=== PATIENT | female | born 1995 | race Caucasian/White ===

== ENCOUNTER 2016-08-29 15:14 | Inpatient (IN) | payer OTHER ==
[~2016-08-29] VITALS: Ht 160 cm; Wt 53.0 kg
[2016-08-29] MEDS ORDERED: SODIUM CHLORIDE 0.9% 1000ML 1,000 ML IV STA (17:33)
--- NOTE | 2016-08-29 17:49 | EMERGENCY ROOM VISIT NOTE ---
History Report prepared by Duy: Carolyn Altamirano Under the Supervision of: Dr. Jefferson Wu D.O. First contact with patient: 17:33 Chief Complaint: ABDOMINAL PAIN Stated Complaint: ABDOMINAL CRAMPING, DIARRHEA FOR 10 DAYS Nursing Triage Summary: Pt c/o generalized abd pain x10 days +diarrhea History of Present Illness The patient is a 21 year old female who presents to the Emergency Room with complaints of severe and persistent diffuse abdominal pain starting about 10 days ago. The patient describes it to be a cramping pain. She was evaluated by her PCP about a week ago who was concerned about salmonella. The patient gave a stool sample at her PCP's office about a week ago. She has been taking Cipro as prescribed by her PCP without relief. She was referred to the Emergency Room by her PCP. She has been taking Tylenol for her abdominal pain without relief. Her last Tylenol dose was about 5 hours ago. She had a fever of 101 degrees Fahrenheit this morning. She has been having about 10 episodes of diarrhea every day for the past 2 weeks. She also reports some blood in stool. She denies any [id number] travels. The patient also denies nausea, vomiting, or any other complaints. She has a family history of Crohn's disease. She does not have any medical problems. Source of History: patient Onset: about 10 days ago Position: abdomen (diffuse) Symptom Intensity: severe Quality: cramping Timing: other (persistent) Modifying Factors (Relieving): tylenol (without relief), other (Cipro without relief) Associated Symptoms: + diarrhea, + fevers, No nausea, No vomiting Review of Systems See HPI for pertinent positives & negatives. A total of 10 systems reviewed and were otherwise negative. Past Medical & Surgical Medical Problems: (1) Diarrhea (2) No Known Active Medical Problems Family History FH: Crohn's disease Social History Smoking Status: Never Smoker Marital Status: single Occupation Status: [employer] student Current/Historical Medications Scheduled Control Pills ( Control Pills), 1 TAB PO QPM Scheduled PRN Acetaminophen (Tylenol), 500 MG PO Q6 PRN for Pain Ibuprofen (Advil), 200 MG PO Q6 PRN for Pain Allergies Coded Allergies: No Known Allergies (Unverified , 08/29/16) Physical Exam Vital Signs Date Time Temp Pulse Resp B/P Pulse Ox O2 Delivery O2 Flow Rate FiO2 08/29/16 22:17 106 21 119/73 100 Room Air 08/29/16 21:51 92 08/29/16 20:16 105 17 117/81 99 Room Air 08/29/16 18:28 78 18 120/94 98 Room Air 08/29/16 17:53 103 08/29/16 15:27 37.4 127 18 126/86 96 Room Air Physical Exam GENERAL: Patient is awake, alert, non-anxious appearing, and comfortable. EYES: The conjunctivae are clear. The pupils are round and reactive. EARS, NOSE, MOUTH AND THROAT: The nose is without any evidence of any deformity. Mucous membranes are moist tongue is midline NECK: The neck is nontender and supple. RESPIRATORY: Normal respiratory effort is noted there is no evidence of wheezing rhonchi or rales CARDIOVASCULAR: Tachycardic rate and regular rhythm noted there are no definite murmurs noted. GASTROINTESTINAL: The abdomen is soft. Bowel sounds are present in all quadrants. Abdomen is moderately distended and diffusely tender. There is no specific guarding or rigidity. MUSCULOSKELETAL/EXTREMITIES: There is no evidence of gross deformity full range of motion is noted in the hips and shoulders SKIN: There is no obvious evidence of any rash. There are no petechiae, pallor or cyanosis noted. NEUROLOGIC: Patient is awake alert and oriented x3 strength is symmetric patellar reflexes are 2+ bilaterally Medical Decision & Procedures ER Provider Diagnostic Interpretation: CT results as stated below per my review and radiologist interpretation. ABDOMEN AND PELVIS CT WITH IV AND ORAL CONTRAST CT DOSE: 250.85 mGy.cm HISTORY: Pain diffuse pain, blood in stool TECHNIQUE: Multiaxial CT images of the abdomen and pelvis were performed following the use of intravenous and oral contrast. COMPARISON STUDY: None. FINDINGS: Lung bases are clear. Liver spleen and pancreas are unremarkable. Kidneys negative for hydronephrosis. There are findings of moderate generalized wall edema of the bulk of the colon. This consistent with that of a generalized nonspecific colitis. There is no evidence for pneumatosis. There is trace amount of free fluid within the pelvic cul-de-sac. There is no evidence for abscess collection or obstructive change. Small bowel pattern is considered nonobstructive. There are several reactive mesenteric and retroperitoneal nodes. IMPRESSION: 1. Findings consistent with a generalized nonspecific colitis. 2. Wall thickening of all segments of the colon is present. 3. No evidence for abscess collection or obstructive change. Electronically signed by: Romeo Looney M.D. 08/29/2016 8:24 PM Dictated Date/Time: 08/29/2016 8:20 PM Laboratory Results 08/29/16 17:42 Red Blood Count 4.67, Mean Corpuscular Volume 83.3, Mean Corpuscular Hemoglobin 29.6, Mean Corpuscular Hemoglobin Concent 35.5, Mean Platelet Volume 9.0, Neutrophils (%) (Auto) 74.8, Lymphocytes (%) (Auto) 15.3, Monocytes (%) (Auto) 7.3, Eosinophils (%) (Auto) 1.8, Basophils (%) (Auto) 0.2, Neutrophils # (Auto) 10.08, Lymphocytes # (Auto) 2.06, Monocytes # (Auto) 0.99, Eosinophils # (Auto) 0.24, Basophils # (Auto) 0.03 08/29/16 17:42 Test 08/29/16 17:42 08/29/16 18:37 08/29/16 19:32 White Blood Count 13.48 K/uL (4.8-10.8) Red Blood Count 4.67 M/uL (4.2-5.4) Hemoglobin 13.8 g/dL (12.0-16.0) Hematocrit 38.9 % (37-47) Mean Corpuscular Volume 83.3 fL (80-100) Mean Corpuscular Hemoglobin 29.6 pg (25-34) Mean Corpuscular Hemoglobin Concent 35.5 g/dl (32-36) Platelet Count 385 K/uL (130-400) Mean Platelet Volume 9.0 fL (7.4-10.4) Neutrophils (%) (Auto) 74.8 % Lymphocytes (%) (Auto) 15.3 % Monocytes (%) (Auto) 7.3 % Eosinophils (%) (Auto) 1.8 % Basophils (%) (Auto) 0.2 % Neutrophils # (Auto) 10.08 K/uL (1.4-6.5) Lymphocytes # (Auto) 2.06 K/uL (1.2-3.4) Monocytes # (Auto) 0.99 K/uL (0.11-0.59) Eosinophils # (Auto) 0.24 K/uL (0-0.5) Basophils # (Auto) 0.03 K/uL (0-0.2) RDW Standard Deviation 37.1 fL (36.4-46.3) RDW Coefficient of Variation 12.2 % (11.5-14.5) Immature Granulocyte % (Auto) 0.6 % Immature Granulocyte # (Auto) 0.08 K/uL (0.00-0.02) Erythrocyte Sedimentation Rate 39 mm/hr (0-21) Anion Gap 8.0 mmol/L (3-11) Est Creatinine Clear Calc Drug Dose 76.6 ml/min Estimated GFR () 116.9 Estimated GFR (Non- 100.9 BUN/Creatinine Ratio 5.1 (10-20) Calcium Level 9.3 mg/dl (8.5-10.1) Magnesium Level 2.0 mg/dl (1.8-2.4) Total Bilirubin 0.4 mg/dl (0.2-1) Direct Bilirubin 0.1 mg/dl (0-0.2) Aspartate Amino Transf (AST/SGOT) 12 U/L (15-37) Alanine Aminotransferase (ALT/SGPT) 15 U/L (12-78) Alkaline Phosphatase 92 U/L (45-117) C-Reactive Protein 13.20 mg/dl (0-0.29) Total Protein 8.3 gm/dl (6.4-8.2) Albumin 3.2 gm/dl (3.4-5.0) Lipase 113 U/L (73-393) Human Chorionic Gonadotropin, Qual NEG (NEG) Urine Color YELLOW Urine Appearance CLEAR (CLEAR) Urine pH 5.5 (4.5-7.5) Urine Specific [place] 1.011 (1.000-1.030) Urine Protein 1+ (NEG) Urine Glucose (UA) NEG (NEG) Urine Ketones 1+ (NEG) Urine Occult Blood 1+ (NEG) Urine Nitrite NEG (NEG) Urine Bilirubin NEG (NEG) Urine Urobilinogen NEG (NEG) Urine Leukocyte Esterase NEG (NEG) Urine WBC (Auto) 1-5 /hpf (0-5) Urine RBC (Auto) 0-4 /hpf (0-4) Urine Hyaline Casts (Auto) 1-5 /lpf (0-5) Urine Epithelial Cells (Auto) >30 /lpf (0-5) Urine Bacteria (Auto) 1+ (NEG) Date/Time Source Procedure Growth Status 08/29/16 21:57 Stool C.difficile Toxin B Gene (PCR) - Final No C. difficile toxin B gene detected Complete Laboratory results per my review. Medications Administered Medications (Trade) Dose Ordered Sig/Wero Route Start Time Stop Time Status Last Admin Dose Admin Sodium Chloride (Nss 1000ml) 1,000 ml @ 999 mls/hr Q1H1M STAT IV 08/29/16 17:33 08/29/16 18:33 DC 08/29/16 17:51 999 MLS/HR ED Course 1732: The patient was evaluated in room A02. A complete history and physical examination were performed. Sodium Chloride 1000 ml @ 999 mls/hr IV 2032: Upon reevaluation, the patient is doing well. I discussed results and treatment plan with her. She verbalizes agreement and understanding. 2038: I discussed the patient's case with Dr. Jolly, general surgeon with [facility]. She recommended inpatient treatment. 2151: I spoke with Dr. Bhatia of the [facility]. The patient will be evaluated for further management and care. Medical Decision Prior records/ancillary studies reviewed. Triage Nursing notes reviewed. The patient's history was concerning for abdominal pain. Differential diagnosis: Etiologies such as appendicitis, diverticulitis, PUD, biliary pathology, UTI, pancreatitis, obstruction, mesenteric ischemia, aortic pathology, infections, inflammatory bowel disease, renal colic, as well as others were entertained. The patient is a 21-year-old female who presented to emergency department because of ongoing diarrhea. The patient has had loose bowel movements and has noted blood in her bowel movements over the last week. She was initially seen by her primary physician who sent stool studies which are pending and also started the patient on Cipro a few days ago. The patient thought the Cipro was making her pain worse and stop taking it. The patient does have a first-degree relative who has inflammatory bowel disease. She was treated with IV fluids in the emergency department. She was reevaluated multiple times. I discussed her case with the on-call stained glass glazier helper. I also discussed his case with the on- call [facility]. They have agreed to evaluate the patient in the emergency department for further management and disposition. Consults Time Called: 2034 Consulting Physician: Dr. Jolly, general surgeon with [facility] Returned Call: 2038 I discussed the patient's case with Dr. Jolly, general surgeon with [facility]. She recommended inpatient treatment. Additional Consults: Time Called: 2044 [facility]ed [facility] Returned Call: [phone] Additional Comments: [facility] The patient will be evaluated for further management and care. Impression Primary Impression: Lower GI bleed Additional Impressions: Colitis Abdominal pain Elevated white blood cell count Scribe Attestation The scribe's documentation has been prepared under my direction and personally reviewed by me in its entirety. I confirm that the note above accurately reflects all work, treatment, procedures, and medical decision making performed by me. Departure Information Dispostion Being Evaluated By Hospitalist Referrals No Doctor, Assigned (PCP) Patient Instructions My [facility] Problem Qualifiers Additional Impressions: Abdominal pain Abdominal location: generalized Qualified Codes: R10.84 - Generalized abdominal pain Elevated white blood cell count Leukocytosis type: unspecified Qualified Codes: D72.829 - Elevated white blood cell count, unspecified
[2016-08-29 17:51] LABS: BASO % 0.2 %; BASO ABS # 0.03 K/uL (0-0.2); COMPLETE YES; EOS % 1.8 %; HEMATOCRIT 38.9 % (37-47); IG% 0.6 %; LYMPH % 15.3 %; LYMPH ABS # 2.06 K/uL (1.2-3.4); MEAN CELL VOLUME 83.3 fL (80-100); MEAN CORPUSCULAR HEMOGLOBIN 29.6 pg (25-34); MEAN CORPUSCULAR HGB CONC 35.5 g/dl (32-36); MONO % 7.3 %; NEUT % 74.8 %; PLATELET COUNT 385 K/uL (130-400); RED BLOOD COUNT 4.67 M/uL (4.2-5.4); WHITE BLOOD COUNT 13.48 K/uL (4.8-10.8)
[2016-08-29 18:11] LABS: BUN/CREATININE RATIO 5.1 (10-20); CALCIUM 9.3 mg/dl (8.5-10.1); CREATININE 0.82 mg/dl (0.60-1.20); POTASSIUM 3.4 mmol/L (3.5-5.1)
[2016-08-29 18:40] LABS: PREG INTERNAL NEGATIVE QC NEG CLEAR BACKGROUND; PREG INTERNAL POSITIVE QC POS CONTROL LINE
[2016-08-29] MEDS ORDERED: IBUP-1050 PO (18:41)
[2016-08-29] MEDS ORDERED: BCPILLS PO (18:41)
[2016-08-29] MEDS ORDERED: ACET-1256 PO (18:41)
[2016-08-29 19:42] LABS: URINE APPEARANCE CLEAR (CLEAR); URINE BILIRUBIN NEG (NEG); URINE COLOR YELLOW; URINE EPITHELIAL CELL AUTO >30 /lpf (0-5); URINE NITRITE NEG (NEG); URINE PH 5.5 (4.5-7.5); URINE SPECIFIC GRAVITY 1.011 (1.000-1.030); UROBILINOGEN NEG (NEG)
[2016-08-29 19:48] LABS: MANUAL MICROSCOPIC REQUIRED? NO; REVIEW REQ? NO
--- NOTE | 2016-08-29 20:26 | DIAGNOSTIC IMAGING REPORT ---
ABDOMEN AND PELVIS CT WITH IV AND ORAL CONTRAST CT DOSE: 250.85 mGy.cm HISTORY: Pain diffuse pain, blood in stool TECHNIQUE: Multiaxial CT images of the abdomen and pelvis were performed following the use of intravenous and oral contrast. COMPARISON STUDY: None. FINDINGS: Lung bases are clear. Liver spleen and pancreas are unremarkable. Kidneys negative for hydronephrosis. There are findings of moderate generalized wall edema of the bulk of the colon. This consistent with that of a generalized nonspecific colitis. There is no evidence for pneumatosis. There is trace amount of free fluid within the pelvic cul-de-sac. There is no evidence for abscess collection or obstructive change. Small bowel pattern is considered nonobstructive. There are several reactive mesenteric and retroperitoneal nodes. IMPRESSION: 1. Findings consistent with a generalized nonspecific colitis. 2. Wall thickening of all segments of the colon is present. 3. No evidence for abscess collection or obstructive change. Electronically signed by: Romeo Looney M.D. 08/29/2016 8:24 PM Dictated Date/Time: 08/29/2016 8:20 PM
--- NOTE | 2016-08-29 22:10 | History and Physical ---
History & Physical Date & Time of Service: Aug 29, 2016 at 22:10 Chief Complaint: Abdominal Cramping, Diarrhea For 10 Days Primary Care Physician: No Doctor, Assigned History of Present Illness Source: patient, family This is a 21 y/o F with no significant pmh who presents with a 10 day history of persistent diarrhea and abdominal cramping. She had about 10 episodes a day of diarrhea to start with. She went to her PCP abotu 5 days ago and was given Cipro which has decreased her episodes to 4-5 a day but she remarks that she has more severe abdominal cramping and more intense diarrhea while on the Cipro. Her stools now to have bright red blood. Also sometimes mucousy vs. fatty ? She also did have a fever of 101 this morning. She has been taking tylenol and ibuprofen intermittently. Walking can exacerbate her symptoms. Lying in bed seems to make her pain tolerable. 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 Denies chest pain, shortness of breath, nausea, vomiting, hematuria, hematemesis She denies recent travel. She only takes control. Denies sick contacts Extended family history of Crohn's. Sister with IBS. No food intolerances that she's aware of. Denies use of any laxatives, or herbal teas/ supplements Family History FH: Crohn's disease Social History Smoking Status: Never Smoker Alcohol Use: socially Drug Use: none Marital Status: single Housing status: lives with family Occupational Status: [employer] student Allergies Coded Allergies: No Known Allergies (Unverified , 08/29/16) Home Medications Scheduled Control Pills ( Control Pills), 1 TAB PO QPM Mesalamine (Lialda), 4 TAB PO DAILY Metronidazole (Flagyl), 500 MG PO BID Prednisone Tab (Prednisone), 10 MG PO DAILY Scheduled PRN Acetaminophen (Tylenol), 500 MG PO Q6 PRN for Pain Review of Systems Constitutional: + chills, + fatigue, + fever, + weakness Respiratory: No cough, No dyspnea at rest, No dyspnea on exertion, No shortness of breath, No sputum, No wheezing Cardiovascular: No chest pain Abdomen: + diarrhea, + pain, No nausea, No vomiting Genitourinary - Female: No dysuria, No urinary frequency, No urinary incontinence, No urinary urgency Physical Exam Vital Signs Date Time Temp Pulse Resp B/P Pulse Ox O2 Delivery O2 Flow Rate FiO2 08/29/16 21:51 92 08/29/16 20:16 105 17 117/81 99 Room Air 08/29/16 18:28 78 18 120/94 98 Room Air 08/29/16 17:53 103 08/29/16 15:27 37.4 127 18 126/86 96 Room Air General Appearance: no apparent distress Head: normocephalic, atraumatic Eyes: normal inspection, PERRL, EOMI ENT: hearing grossly normal Neck: supple, no adenopathy, thyroid normal Respiratory/Chest: chest non-tender, lungs clear, normal breath sounds, no respiratory distress, no accessory muscle use Cardiovascular: no edema, no murmur, + tachycardia Abdomen/GI: + tenderness (diffusely), + abnormal bowel sounds (hyperactive) Back: no CVA tenderness Extremities/Musculoskelatal: no calf tenderness, normal capillary refill, no pedal edema Neurologic/Psych: no motor/sensory deficits, alert, normal mood/affect, oriented x 3 Diagnostics Laboratory Results Results Past 24 Hours Test 08/29/16 17:42 08/29/16 18:37 08/29/16 19:32 Range/Units White Blood Count 13.48 4.8-10.8 K/uL Red Blood Count 4.67 4.2-5.4 M/uL Hemoglobin 13.8 12.0-16.0 g/dL Hematocrit 38.9 37-47 % Mean Corpuscular Volume 83.3 80-100 fL Mean Corpuscular Hemoglobin 29.6 25-34 pg Mean Corpuscular Hemoglobin Concent 35.5 32-36 g/dl Platelet Count 385 130-400 K/uL Mean Platelet Volume 9.0 7.4-10.4 fL Neutrophils (%) (Auto) 74.8 % Lymphocytes (%) (Auto) 15.3 % Monocytes (%) (Auto) 7.3 % Eosinophils (%) (Auto) 1.8 % Basophils (%) (Auto) 0.2 % Neutrophils # (Auto) 10.08 1.4-6.5 K/uL Lymphocytes # (Auto) 2.06 1.2-3.4 K/uL Monocytes # (Auto) 0.99 0.11-0.59 K/uL Eosinophils # (Auto) 0.24 0-0.5 K/uL Basophils # (Auto) 0.03 0-0.2 K/uL RDW Standard Deviation 37.1 36.4-46.3 fL RDW Coefficient of Variation 12.2 11.5-14.5 % Immature Granulocyte % (Auto) 0.6 % Immature Granulocyte # (Auto) 0.08 0.00-0.02 K/uL Erythrocyte Sedimentation Rate 39 0-21 mm/hr Sodium Level 139 136-145 mmol/L Potassium Level 3.4 3.5-5.1 mmol/L Chloride Level 104 98-107 mmol/L Carbon Dioxide Level 27 21-32 mmol/L Anion Gap 8.0 3-11 mmol/L Blood Urea Nitrogen 4 7-18 mg/dl Creatinine 0.82 0.60-1.20 mg/dl Est Creatinine Clear Calc Drug Dose 76.6 ml/min Estimated GFR () 116.9 Estimated GFR (Non- 100.9 BUN/Creatinine Ratio 5.1 10-20 Random Glucose 89 70-99 mg/dl Calcium Level 9.3 8.5-10.1 mg/dl Magnesium Level 2.0 1.8-2.4 mg/dl Total Bilirubin 0.4 0.2-1 mg/dl Direct Bilirubin 0.1 0-0.2 mg/dl Aspartate Amino Transf (AST/SGOT) 12 15-37 U/L Alanine Aminotransferase (ALT/SGPT) 15 12-78 U/L Alkaline Phosphatase 92 45-117 U/L C-Reactive Protein 13.20 0-0.29 mg/dl Total Protein 8.3 6.4-8.2 gm/dl Albumin 3.2 3.4-5.0 gm/dl Lipase 113 73-393 U/L Human Chorionic Gonadotropin, Qual NEG NEG Urine Color YELLOW Urine Appearance CLEAR CLEAR Urine pH 5.5 4.5-7.5 Urine Specific [place] 1.011 1.000-1.030 Urine Protein 1+ NEG Urine Glucose (UA) NEG NEG Urine Ketones 1+ NEG Urine Occult Blood 1+ NEG Urine Nitrite NEG NEG Urine Bilirubin NEG NEG Urine Urobilinogen NEG NEG Urine Leukocyte Esterase NEG NEG Urine WBC (Auto) 1-5 0-5 /hpf Urine RBC (Auto) 0-4 0-4 /hpf Urine Hyaline Casts (Auto) 1-5 0-5 /lpf Urine Epithelial Cells (Auto) >30 0-5 /lpf Urine Bacteria (Auto) 1+ NEG Microbiology Results 08/29/16 C.difficile Toxin B Gene (PCR), Received Pending 08/29/16 Shiga Toxin Test, Received Pending 08/29/16 Stool Culture, Received Pending 08/29/16 WBC Smear - Preliminary, Resulted Impression Assessment and Plan This is a 21 y/o F who presents with: Intractable Diarrhea (water vs. inflammatory vs. Fatty) IV fluids Electrolyte replacement Zofran for nausea GI consult C.Diff pending Stool cultures pending stool ova and parasites pending Hemoccult pending Will keep NPO after midnight CT with evidence of non specific colitis Check TSH DVT: ambulation/ scd Code: Full Level of Care Med/Surg Resuscitation Status FULL RESUSCITATION Assessment and Plan Attending Addendum: I have physically seen and examined this patient, have directed their medical care, have supervised the medical residents activities, and agree with the H&P as noted above, with the following changes: The patient is awake, well-developed and adequately nourished, alert and oriented 3, normocephalic and atraumatic, lying in bed and in no acute distress. HEENT--PERRL, EOMI, mucous membranes and oropharynx dry. Neck--supple, no JVD or bruits, thyroid normal, trachea midline, no adenopathy. Heart--tachycardic no extra beats, no murmurs, rubs or gallops. Lungs--clear bilaterally with good air movement, no respiratory distress, no accessory muscle use. Abdomen--mildly hyperactive bowel sounds and soft, generalized tenderness, nondistended, no hernias or masses, no organomegaly. Extremities--no cyanosis, clubbing or edema. There are good distal pulses b/l. Dermatologic--normal skin turgor, normal color, warm and dry, no abnormal lymph nodes, no rash. Neurologic--cranial nerves II through XII grossly intact, motor and sensory examination normal. Rheumatologic--normal range of motion, nontender, muscles and joints. Psychiatric--normal affect. Assessment and Plan: Intractable diarrhea/nonspecific colitis--admitted to the medical floor. Stool studies pending for C. difficile, culture and O&P. We'll make nothing by mouth after midnight, Clear liquids up to that time. Place on normal saline with potassium chloride 20 mEq at 100 ML's per hour, Zofran 4 mg IV every 6 hours when necessary, Protonix 40 mg IV daily. Consult GI.
[2016-08-29] MEDS ORDERED: ALUMINUM/MAGNESIUM/SIMETH (MAALOX MAX) 30 ML UDC PO PRN (23:00)
[2016-08-29] MEDS ORDERED: ACETAMINOPHEN 325 MG TAB PO PRN (23:00)
[2016-08-29] MEDS ORDERED: ONDANSETRON INJ 2 MG/ML 2 ML VIAL IV PRN ×2 (23:00)
[2016-08-29] MEDS ORDERED: MAGNESIUM HYDROXIDE SUSP 30 ML UDC PO PRN (23:00)
[2016-08-29] MEDS ORDERED: POLYETHYLENE (MIRALAX) 17 GM PACK PO PRN (23:00)
[2016-08-30] MEDS: BCP'S~ORDER AWAITING ACTION SCH ×4 (00:30→23:59)
[2016-08-30] MEDS: NSS + 20MEQ KCL 1000ML 1,000 ML IV SCH ×3 (01:33→20:24)
[2016-08-30 02:50] VITALS: BP 110/73; PULSE 112; TEMP 37.1; O2SAT 96; Ht 160 cm; Wt 53.0 kg
[2016-08-30 07:31] VITALS: BP 107/66; PULSE 119; TEMP 37.1; O2SAT 100
[2016-08-30] MEDS ORDERED: NURSING VERBAL MED ORDER ONE ×2 (08:15→08:30)
--- NOTE | 2016-08-30 11:00 | Gastrointestinal Consultation ---
Gastrointestinal Consultation Date of Consultation: Aug 30, 2016 Consulting Physician: Donte Reason for Consultation: rectal bleeding, diarrhea History of Present Illness Patient is a 21 year old female who presents with abrupt onset abdominal pain, abdominal cramping, rectal bleeding and diarrhea for the past 10 days. The abdominal pain is intermittent, worse with movement, better at rest. It is generalized, worse in lower quadrants. The abdominal pain is cramping. Does not radiate. Worsens with BM. Back to baseline after BM. No rectal pain with BM. BMs have been loose/liquid with BRBPR. BRBPR is in the toilet bowl and mixed with stool. No clots. Fever of 101 few days ago. None sense. Denies fever, chills, chest pain, SOB, nausea, vomiting, black stools. CRP/ESR mildly elevated C.diff negative. Culture pending. O&P pending. Fecal Occult Blood negative. EGD not previously completed Colonoscopy not previously completed Aunt with IBD. Sister with IBS Past Medical/Surgical History Medical Problems: (1) Abdominal pain Status: Acute (2) Colitis Status: Acute (3) Elevated white blood cell count Status: Acute (4) Lower GI bleed Status: Acute Family History FH: Crohn's disease Social History Smoking Status: Never Smoker Drug Use: none Marital Status: single Occupation Status: [employer] student Allergies Coded Allergies: No Known Allergies (Unverified , 08/29/16) Current Medications Home Meds and Scripts Medications Dose Route/Sig Max Daily Dose Days Date Category Advil (Ibuprofen) 200 Mg Tab 200 Mg PO Q6 PRN 08/29/16 Reported Tylenol (Acetaminophen) 500 Mg Tab 500 Mg PO Q6 PRN 08/29/16 Reported Control Pills (Miscellaneous) Tab 1 Tab PO QPM 08/29/16 Reported Review of Systems Constitutional: No chills, No fever Respiratory: No cough, No shortness of breath Cardiac: No chest pain, No edema Abdomen: + GI bleeding, + diarrhea, + pain, No constipation, No nausea, No vomiting Physical Exam Date Time Temp Pulse Resp B/P Pulse Ox O2 Delivery O2 Flow Rate FiO2 08/30/16 07:31 37.1 119 16 107/66 100 Room Air 08/30/16 02:50 37.1 112 18 110/73 96 Room Air 08/30/16 00:18 104 20 112/69 97 08/30/16 00:17 104 20 112/69 97 Room Air 08/29/16 22:17 106 21 119/73 100 Room Air 08/29/16 21:51 92 08/29/16 20:16 105 17 117/81 99 Room Air 08/29/16 18:28 78 18 120/94 98 Room Air 08/29/16 17:53 103 08/29/16 15:27 37.4 127 18 126/86 96 Room Air General Appearance: + mild distress (patient is very upset, crying in bed, wants to go home, has thesis she needs to finish by Monday) Eyes: PERRL ENT: hearing grossly normal Neck: supple, trachea midline Respiratory/Chest: chest non-tender, normal breath sounds, no respiratory distress, no accessory muscle use Cardiovascular: regular rate, rhythm, no edema, no murmur Abdomen: normal bowel sounds, non tender, soft, no pulsatile mass Neurologic/Psych: alert, normal mood/affect, oriented x 3 Skin: normal color, no jaundice, warm/dry, no rash Laboratory Results Last 24 Hours Test 08/29/16 17:42 08/29/16 18:37 08/29/16 19:32 08/30/16 02:44 White Blood Count 13.48 K/uL Red Blood Count 4.67 M/uL Hemoglobin 13.8 g/dL Hematocrit 38.9 % Mean Corpuscular Volume 83.3 fL Mean Corpuscular Hemoglobin 29.6 pg Mean Corpuscular Hemoglobin Concent 35.5 g/dl Platelet Count 385 K/uL Mean Platelet Volume 9.0 fL Neutrophils (%) (Auto) 74.8 % Lymphocytes (%) (Auto) 15.3 % Monocytes (%) (Auto) 7.3 % Eosinophils (%) (Auto) 1.8 % Basophils (%) (Auto) 0.2 % Neutrophils # (Auto) 10.08 K/uL Lymphocytes # (Auto) 2.06 K/uL Monocytes # (Auto) 0.99 K/uL Eosinophils # (Auto) 0.24 K/uL Basophils # (Auto) 0.03 K/uL RDW Standard Deviation 37.1 fL RDW Coefficient of Variation 12.2 % Immature Granulocyte % (Auto) 0.6 % Immature Granulocyte # (Auto) 0.08 K/uL Erythrocyte Sedimentation Rate 39 mm/hr Sodium Level 139 mmol/L Potassium Level 3.4 mmol/L Chloride Level 104 mmol/L Carbon Dioxide Level 27 mmol/L Anion Gap 8.0 mmol/L Blood Urea Nitrogen 4 mg/dl Creatinine 0.82 mg/dl Est Creatinine Clear Calc Drug Dose 76.6 ml/min Estimated GFR () 116.9 Estimated GFR (Non- 100.9 BUN/Creatinine Ratio 5.1 Random Glucose 89 mg/dl Calcium Level 9.3 mg/dl Magnesium Level 2.0 mg/dl Total Bilirubin 0.4 mg/dl Direct Bilirubin 0.1 mg/dl Aspartate Amino Transf (AST/SGOT) 12 U/L Alanine Aminotransferase (ALT/SGPT) 15 U/L Alkaline Phosphatase 92 U/L C-Reactive Protein 13.20 mg/dl Total Protein 8.3 gm/dl Albumin 3.2 gm/dl Lipase 113 U/L Human Chorionic Gonadotropin, Qual NEG Urine Color YELLOW Urine Appearance CLEAR Urine pH 5.5 Urine Specific [place] 1.011 Urine Protein 1+ Urine Glucose (UA) NEG Urine Ketones 1+ Urine Occult Blood 1+ Urine Nitrite NEG Urine Bilirubin NEG Urine Urobilinogen NEG Urine Leukocyte Esterase NEG Urine WBC (Auto) 1-5 /hpf Urine RBC (Auto) 0-4 /hpf Urine Hyaline Casts (Auto) 1-5 /lpf Urine Epithelial Cells (Auto) >30 /lpf Urine Bacteria (Auto) 1+ Stool Occult Blood NEGATIVE Test 08/30/16 07:25 Thyroid Stimulating Hormone (TSH) 1.510 uIu/ml Impression Patient is a 21 year old female with loose stools, abdominal pain and BRBPR x 10 days. Stools that have resulted so far have been negative. Patient is considering leaving A. Advised if she stays in hospital will do colonoscopy tomorrow. Plan Full liquids for lunch Clear liquids at 1400 NPO after midnight 20 mg dulcolax at 1700 119 gm miralax 1700 119 gm miralax 2100 Colonoscopy tomorrow w/ Donte Bentyl 10 mg QID
--- NOTE | 2016-08-30 13:48 | Progress Note ---
Subjective Date of Service: Aug 30, 2016. Subjective Pt evaluation today including: conversation w/ patient, conversation w/ family , physical exam, chart review, lab review, review of studies, conversation w/ warehouse consultant (GI - Lindsey Chacon), review of inpatient medication list Patient seen and evaluated. Patient reporting generalized fatigue and poor sleep overnight. She continues to have diarrhea. States that abdominal cramping increases after bowel movements. Patient reports some relief of abdominal cramping with laying on her back and some relief with Tylenol. Patient is irritable. She reports that she would like to go home. Reporting increased stress secondary to schoolwork and thesis. She denies similar episodes in the past. Her mother states that she has had bright red blood per stool multiple times in the past Sister with diagnosis of IBS with diarrhea - however workup has never been obtained Extended family member with history of Crohn's disease. Problem List Medical Problems: (1) Abdominal pain Status: Acute (2) Colitis Status: Acute (3) Elevated white blood cell count Status: Acute (4) Lower GI bleed Status: Acute Review of Systems Constitutional: No chills, No fever ENT: No nasal symptoms, No sore throat, No trouble swallowing Respiratory: No cough, No hemoptysis, No shortness of breath Cardiac: No chest pain Abdomen: + diarrhea, + pain, + problem reported (BRBPR (intermittent)), No constipation, No nausea, No vomiting Musculoskeletal: No calf pain, No swelling Female : No dysuria Neurologic: No vertigo Skin: No rash Medications Current Inpatient Medications Medications (Trade) Dose Ordered Sig/Wero Route Start Time Stop Time Status Last Admin Dose Admin Al Hydrox/Mg Hydrox/Simethicone (Maalox Max Susp) 15 ml Q4H PRN PO 08/29/16 23:00 09/28/16 22:59 Magnesium Hydroxide (Milk Of Magnesia Susp) 30 ml Q6H PRN PO 08/29/16 23:00 09/28/16 22:59 Polyethylene (Miralax Powder Packet) 17 gm DAILY PRN PO 08/29/16 23:00 09/28/16 22:59 Ondansetron HCl (Zofran Inj) 4 mg Q6H PRN IV 08/29/16 23:00 09/28/16 22:59 Miscellaneous Information 1 ea 1 ea QS N/A 08/30/16 00:00 09/29/16 00:00 Potassium Chloride/Sodium Chloride (Nss + 20meq KCl 1000ml) 1,000 ml @ 100 mls/hr Q10H IV 08/30/16 01:00 09/29/16 00:59 08/30/16 11:08 100 MLS/HR Acetaminophen (Tylenol Tab) 650 mg Q8H PRN PO 08/30/16 08:45 09/29/16 08:44 Dicyclomine HCl (Bentyl Tab) 10 mg QID PO 08/30/16 13:00 09/29/16 12:59 Bisacodyl (Dulcolax Tab) 20 mg 1700 ONCE PO 08/30/16 17:00 08/30/16 17:01 Polyethylene (Miralax Powder Packet) 119 gm 2100 ONCE PO 08/30/16 21:00 08/30/16 21:01 Polyethylene (Miralax Powder Packet) 119 gm 1700 ONCE PO 08/30/16 17:00 08/30/16 17:01 Objective Vital Signs Date Time Temp Pulse Resp B/P Pulse Ox O2 Delivery O2 Flow Rate FiO2 08/30/16 08:00 Room Air 08/30/16 07:31 37.1 119 16 107/66 100 Room Air 08/30/16 02:50 37.1 112 18 110/73 96 Room Air 08/30/16 00:18 104 20 112/69 97 08/30/16 00:17 104 20 112/69 97 Room Air 08/29/16 22:17 106 21 119/73 100 Room Air 08/29/16 21:51 92 08/29/16 20:16 105 17 117/81 99 Room Air 08/29/16 18:28 78 18 120/94 98 Room Air 08/29/16 17:53 103 08/29/16 15:27 37.4 127 18 126/86 96 Room Air Physical Exam General Appearance: WD/WN, + mild distress (appears uncomfortable) Eyes: sclerae normal ENT: hearing grossly normal Neck: supple, no JVD, trachea midline Respiratory/Chest: lungs clear, normal breath sounds, no respiratory distress, no accessory muscle use Cardiovascular: regular rate, rhythm, no gallop, no murmur Abdomen: normal bowel sounds, soft, + tenderness, + pertinent finding ( negative for acute abdomen - no evidence of guarding or rigidity) Extremities: no pedal edema, no calf tenderness Neurologic/Psychiatric: alert, oriented x 3 Skin: normal color, warm/dry Laboratory Results Last 24 Hours Test 08/29/16 17:42 08/29/16 18:37 08/29/16 19:32 08/30/16 02:44 White Blood Count 13.48 K/uL Red Blood Count 4.67 M/uL Hemoglobin 13.8 g/dL Hematocrit 38.9 % Mean Corpuscular Volume 83.3 fL Mean Corpuscular Hemoglobin 29.6 pg Mean Corpuscular Hemoglobin Concent 35.5 g/dl Platelet Count 385 K/uL Mean Platelet Volume 9.0 fL Neutrophils (%) (Auto) 74.8 % Lymphocytes (%) (Auto) 15.3 % Monocytes (%) (Auto) 7.3 % Eosinophils (%) (Auto) 1.8 % Basophils (%) (Auto) 0.2 % Neutrophils # (Auto) 10.08 K/uL Lymphocytes # (Auto) 2.06 K/uL Monocytes # (Auto) 0.99 K/uL Eosinophils # (Auto) 0.24 K/uL Basophils # (Auto) 0.03 K/uL RDW Standard Deviation 37.1 fL RDW Coefficient of Variation 12.2 % Immature Granulocyte % (Auto) 0.6 % Immature Granulocyte # (Auto) 0.08 K/uL Erythrocyte Sedimentation Rate 39 mm/hr Sodium Level 139 mmol/L Potassium Level 3.4 mmol/L Chloride Level 104 mmol/L Carbon Dioxide Level 27 mmol/L Anion Gap 8.0 mmol/L Blood Urea Nitrogen 4 mg/dl Creatinine 0.82 mg/dl Est Creatinine Clear Calc Drug Dose 76.6 ml/min Estimated GFR () 116.9 Estimated GFR (Non- 100.9 BUN/Creatinine Ratio 5.1 Random Glucose 89 mg/dl Calcium Level 9.3 mg/dl Magnesium Level 2.0 mg/dl Total Bilirubin 0.4 mg/dl Direct Bilirubin 0.1 mg/dl Aspartate Amino Transf (AST/SGOT) 12 U/L Alanine Aminotransferase (ALT/SGPT) 15 U/L Alkaline Phosphatase 92 U/L C-Reactive Protein 13.20 mg/dl Total Protein 8.3 gm/dl Albumin 3.2 gm/dl Lipase 113 U/L Human Chorionic Gonadotropin, Qual NEG Urine Color YELLOW Urine Appearance CLEAR Urine pH 5.5 Urine Specific [place] 1.011 Urine Protein 1+ Urine Glucose (UA) NEG Urine Ketones 1+ Urine Occult Blood 1+ Urine Nitrite NEG Urine Bilirubin NEG Urine Urobilinogen NEG Urine Leukocyte Esterase NEG Urine WBC (Auto) 1-5 /hpf Urine RBC (Auto) 0-4 /hpf Urine Hyaline Casts (Auto) 1-5 /lpf Urine Epithelial Cells (Auto) >30 /lpf Urine Bacteria (Auto) 1+ Stool Occult Blood NEGATIVE Test 08/30/16 07:25 Thyroid Stimulating Hormone (TSH) 1.510 uIu/ml Assessment and Plan This is a 21 y/o F who presents with: Intractable Diarrhea: Elevated ESR/CRP - C. difficile and Hemoccult negative - stool cultures and ova/parasites pending - Bentyl 10 mg QID - GI following - discussed case with Lindsey Cervantes -- Bowel prep today with colonoscopy per Dr. Kent Fluid and Electrolytes: - NSS + 20 mEq KCl at 100 mL/hr - Trend BMP and mag - replete electrolytes as necessary DVT Prophylaxis: Ambulation/SCDs Code Status: FULL RESUSCITATION Disposition: Return home when medically stable - hopeful for tomorrow Discharge planning: home (the)
[2016-08-30] MEDS: DICYCLOMINE HCL 20 MG TAB PO SCH ×3 (14:07→20:25)
[2016-08-30 15:03] VITALS: BP 108/73; PULSE 113; TEMP 37.2; O2SAT 99
[2016-08-30] MEDS: ACETAMINOPHEN 325 MG TAB PO PRN ×2 (16:04→23:14)
[2016-08-30] MEDS ORDERED: BISACODYL 5 MG TABEC PO ONE (17:00)
[2016-08-30] MEDS ORDERED: POLYETHYLENE (MIRALAX) 17 GM PACK PO ONE ×2 (17:00→21:00)
[2016-08-30 23:12] VITALS: BP 89/59; PULSE 125; TEMP 38.1; O2SAT 100
[2016-08-31] VITALS (9 sets, daily range): BP systolic 101–109; BP diastolic 66–72; PULSE 76–92; TEMP 36.3–36.7; O2SAT 97–100
[2016-08-31] MEDS: NSS + 20MEQ KCL 1000ML 1,000 ML IV SCH ×2 (06:11→16:40)
[2016-08-31] MEDS: BCP'S~ORDER AWAITING ACTION SCH ×2 (07:58→16:41)
[2016-08-31] MEDS: DICYCLOMINE HCL 20 MG TAB PO SCH ×4 (07:58→21:00)
[2016-08-31 07:59] LABS: HEMATOCRIT 34.7 % (37-47); MEAN CELL VOLUME 86.5 fL (80-100); MEAN CORPUSCULAR HEMOGLOBIN 28.7 pg (25-34); MEAN CORPUSCULAR HGB CONC 33.1 g/dl (32-36); MEAN PLATELET VOLUME 9.2 fL (7.4-10.4); PLATELET COUNT 289 K/uL (130-400); RED BLOOD COUNT 4.01 M/uL (4.2-5.4); WHITE BLOOD COUNT 8.58 K/uL (4.8-10.8)
[2016-08-31 08:23] LABS: BUN/CREATININE RATIO 3.2 (10-20); CREATININE 0.69 mg/dl (0.60-1.20); POTASSIUM 3.7 mmol/L (3.5-5.1)
[2016-08-31 08:24] LABS: CALCIUM 8.2 mg/dl (8.5-10.1); MAGNESIUM 1.7 mg/dl (1.8-2.4)
[2016-08-31] MEDS ORDERED: MAGNESIUM SULFATE 1GM / D5W 1 GM in PREMIXED IN D5W 100 ML IV ONE (08:45)
[2016-08-31] MEDS ORDERED: LIDOCAINE HCL 2% 2 ML VIAL (20MG/ML) ONE (11:32)
[2016-08-31] MEDS ORDERED: PROPOFOL IV EMULSION 10 MG/ML 20 ML VIAL IV ONE (11:32)
--- NOTE | 2016-08-31 11:41 | GI REPORT ---
Procedure Date: 08/31/2016 11:07 AM Procedure: Colonoscopy Indications: Generalized abdominal pain, Diarrhea, Rectal bleeding Medicines: Propofol per Anesthesia Complications: No immediate complications. Estimated blood loss: Minimal. Estimated Blood Loss: Estimated blood loss was minimal. Procedure: Pre-Anesthesia Assessment: - Prior to the procedure, a History and Physical was performed, and patient medications, allergies and sensitivities were reviewed. The patient's tolerance of previous anesthesia was reviewed. - The risks and benefits of the procedure and the sedation options and risks were discussed with the patient. All questions were answered and informed consent was obtained. - Patient identification and proposed procedure were verified prior to the procedure by the physician and the nurse. The procedure was verified in the pre-procedure area in the procedure room. - Mental Status Examination: alert and oriented. Airway Examination: normal oropharyngeal airway and neck mobility. Respiratory Examination: clear to auscultation. CV Examination: normal. Abdominal Examination: bowel sounds present, abdomen soft and non-tender, no masses or organomegaly noted. - ASA Grade Assessment: II - A patient with mild systemic disease. After I obtained informed consent, the scope was passed under direct vision. Throughout the procedure, the patient's blood pressure, pulse, and oxygen saturations were monitored continuously. The scope was introduced through the anus and advanced to the terminal ileum. The colonoscopy was performed without difficulty. The patient tolerated the procedure well. The quality of the bowel preparation was good. Findings: The perianal and digital rectal examinations were normal. Pertinent negatives include normal sphincter tone and no palpable rectal lesions. The terminal ileum appeared normal. A diffuse area of moderately congested, erythematous and friable (with contact bleeding) mucosa was found in the entire colon. Biopsies were taken with a cold forceps for histology. Verification of patient identification for the specimen was done by the physician and nurse using the patient's name and date. Estimated blood loss was minimal. Impression: - The examined portion of the ileum was normal. - Congested, erythematous and friable (with contact bleeding) mucosa in the entire examined colon. Biopsied. Recommendation: - Await pathology results. - Start IV steroids here and will need prednisone 40 mg daily with a taper over the next several weeks. - Start oral mesalamine (Lialda 4.8gm daily). - [facility]. - Advance diet as tolerated. Tata T. Suvock, Rosmery Kent DO 08/31/2016 11:41:23 AM This report has been signed electronically. Note Initiated On: 08/31/2016 11:07 AM I attest to the content of the Intraoperative Record and orders documented therein, exceptions below
--- NOTE | 2016-08-31 11:49 | Anesthesiology Progress Note ---
Anesthesia Post Op Note Date & Time Aug 31, 2016 at 11:49 Vital Signs Pain Intensity: 0 Vital Signs Past 12 Hours Date Time Temp Pulse Resp B/P Pulse Ox O2 Delivery O2 Flow Rate FiO2 08/31/16 11:45 88 16 109/72 100 Room Air 08/31/16 11:30 98 16 107/63 99 Room Air 08/31/16 10:48 36.6 90 18 117/74 100 Room Air 08/31/16 08:47 98 Room Air 08/31/16 08:21 36.5 76 18 101/67 98 Room Air 08/31/16 07:30 98 Room Air 08/31/16 07:10 36.6 86 18 109/72 98 Room Air 08/31/16 06:12 36.6 86 18 109/72 98 Room Air 08/31/16 00:00 Room Air Notes Mental Status: alert / awake / arousable, participated in evaluation Pt Amnestic to Procedure: Yes Nausea / Vomiting: adequately controlled Pain: adequately controlled Airway Patency, RR, SpO2: stable & adequate BP & HR: stable & adequate Hydration State: stable & adequate Anesthetic Complications: no major complications apparent
--- NOTE | 2016-08-31 12:12 | Progress Note ---
Progress Note Date of Service Aug 31, 2016. Progress Note Pt will be started on methylprednisolone 20 q8 while admitted. She will need discharged with a taper of prednisone 40 mg x 7 days, 30 mg x 7 days, 20 mg x 7 days, 10 mg x 7 days, 5 mg x 7 days She will need to discharged with Lilalda 4.8g daily Will set up follow up in GI office
--- NOTE | 2016-08-31 12:28 | Progress Note ---
Subjective Date of Service: Aug 31, 2016. Subjective Pt evaluation today including: conversation w/ patient, conversation w/ family , physical exam, chart review, lab review, review of studies, review of inpatient medication list Patient seen and evaluated. Reduce frequency of bowel movements but abdominal cramping still remains. Patient due for colonoscopy today. Heating pad with some relief of abdominal cramping. Problem List Medical Problems: (1) Abdominal pain Status: Acute (2) Colitis Status: Acute (3) Elevated white blood cell count Status: Acute (4) Lower GI bleed Status: Acute Review of Systems Constitutional: + fever, No chills Respiratory: No cough, No shortness of breath Cardiac: No chest pain Abdomen: + diarrhea, + pain (cramping), No constipation, No nausea, No vomiting Musculoskeletal: No calf pain, No swelling Female : No dysuria Neurologic: No vertigo Skin: No rash Medications Current Inpatient Medications Medications (Trade) Dose Ordered Sig/Wero Route Start Time Stop Time Status Last Admin Dose Admin Al Hydrox/Mg Hydrox/Simethicone (Maalox Max Susp) 15 ml Q4H PRN PO 08/29/16 23:00 09/28/16 22:59 Magnesium Hydroxide (Milk Of Magnesia Susp) 30 ml Q6H PRN PO 08/29/16 23:00 09/28/16 22:59 Polyethylene (Miralax Powder Packet) 17 gm DAILY PRN PO 08/29/16 23:00 09/28/16 22:59 Ondansetron HCl (Zofran Inj) 4 mg Q6H PRN IV 08/29/16 23:00 09/28/16 22:59 08/31/16 07:15 4 MG Miscellaneous Information 1 ea 1 ea QS N/A 08/30/16 00:00 09/29/16 00:00 Potassium Chloride/Sodium Chloride (Nss + 20meq KCl 1000ml) 1,000 ml @ 100 mls/hr Q10H IV 08/30/16 01:00 09/29/16 00:59 08/31/16 06:11 100 MLS/HR Acetaminophen (Tylenol Tab) 650 mg Q8H PRN PO 08/30/16 08:45 09/29/16 08:44 08/30/16 23:14 650 MG Dicyclomine HCl 10 mg 10 mg QID PO 08/30/16 13:00 09/29/16 12:59 08/30/16 14:07 10 MG Methylprednisolone Sodium Succinate/ Syringe (Solu-Medrol IV/ Syringe) 0.32 ml @ 1.5 mls/min TID IV 08/31/16 14:00 09/30/16 13:59 UNV Objective Vital Signs Date Time Temp Pulse Resp B/P Pulse Ox O2 Delivery O2 Flow Rate FiO2 08/31/16 12:00 88 16 108/61 100 Room Air 08/31/16 11:45 88 16 109/72 100 Room Air 08/31/16 11:30 98 16 107/63 99 Room Air 08/31/16 10:48 36.6 90 18 117/74 100 Room Air 08/31/16 08:47 98 Room Air 08/31/16 08:21 36.5 76 18 101/67 98 Room Air 08/31/16 07:30 98 Room Air 08/31/16 07:10 36.6 86 18 109/72 98 Room Air 08/31/16 06:12 36.6 86 18 109/72 98 Room Air 08/31/16 00:00 Room Air 08/30/16 23:12 38.1 125 20 89/59 100 Room Air 08/30/16 16:00 Room Air 08/30/16 15:03 37.2 113 16 108/73 99 Room Air Physical Exam General Appearance: WD/WN, no apparent distress Eyes: sclerae normal ENT: hearing grossly normal Neck: supple, no JVD, trachea midline Respiratory/Chest: lungs clear, normal breath sounds, no respiratory distress, no accessory muscle use Cardiovascular: regular rate, rhythm, no gallop, no murmur Abdomen: normal bowel sounds, soft, + tenderness (diffuse - negative guarding/ rigidity; no evidence of acute abdomen) Extremities: no pedal edema, no calf tenderness Neurologic/Psychiatric: alert, oriented x 3 Skin: normal color, warm/dry Laboratory Results Last 24 Hours Test 08/31/16 07:30 White Blood Count 8.58 K/uL Red Blood Count 4.01 M/uL Hemoglobin 11.5 g/dL Hematocrit 34.7 % Mean Corpuscular Volume 86.5 fL Mean Corpuscular Hemoglobin 28.7 pg Mean Corpuscular Hemoglobin Concent 33.1 g/dl RDW Standard Deviation 39.7 fL RDW Coefficient of Variation 12.4 % Platelet Count 289 K/uL Mean Platelet Volume 9.2 fL Sodium Level 143 mmol/L Potassium Level 3.7 mmol/L Chloride Level 112 mmol/L Carbon Dioxide Level 25 mmol/L Anion Gap 6.0 mmol/L Blood Urea Nitrogen 2 mg/dl Creatinine 0.69 mg/dl Est Creatinine Clear Calc Drug Dose 91.1 ml/min Estimated GFR () 142.2 Estimated GFR (Non- 122.7 BUN/Creatinine Ratio 3.2 Random Glucose 88 mg/dl Calcium Level 8.2 mg/dl Magnesium Level 1.7 mg/dl Assessment and Plan This is a 21 y/o F who presents with: Intractable Diarrhea: Elevated ESR/CRP - S/P Colonoscopy 08/31 - C. difficile and Hemoccult negative - stool cultures and ova/parasites pending - Colonoscopy - image/report reviewed - congested, erythematous and friable dose of entire visualized colon - Bentyl 10 mg QID - GI following - recommendations reviewed -- Methylprednisolone 20 mg IV TID -- Taper Prednisone 40 mg x 7 days, 30 mg x 7 days, 20 mg x 7 days, 10 mg x 7 days, 5 mg x 7 days -- D/C on Lialda 4.8 mg daily -- GI outpatient F/U Fluid and Electrolytes: - NSS + 20 mEq KCl at 100 mL/hr - Trend BMP and mag - replete electrolytes as necessary DVT Prophylaxis: Ambulation/SCDs Code Status: FULL RESUSCITATION Disposition: Return home when medically stable - hopeful for tomorrow Discharge planning: home (the)
[2016-08-31] MEDS: METHYLPREDNISOLONE IV 20 MG in SYRINGE 0 ML IV SCH ×2 (13:26→21:23)
[2016-08-31] MEDS: ACETAMINOPHEN 325 MG TAB PO PRN (13:26)
[2016-09-01] MEDS: ACETAMINOPHEN 325 MG TAB PO PRN ×2 (00:09→08:05)
[2016-09-01 00:31] VITALS: BP 97/62; PULSE 78; TEMP 36.7; O2SAT 99
[2016-09-01] MEDS: NSS + 20MEQ KCL 1000ML 1,000 ML IV SCH ×2 (02:44→11:49)
[2016-09-01 07:31] LABS: HEMATOCRIT 36.1 % (37-47); MEAN CELL VOLUME 85.5 fL (80-100); MEAN CORPUSCULAR HEMOGLOBIN 28.9 pg (25-34); MEAN CORPUSCULAR HGB CONC 33.8 g/dl (32-36); MEAN PLATELET VOLUME 9.4 fL (7.4-10.4); PLATELET COUNT 373 K/uL (130-400); RED BLOOD COUNT 4.22 M/uL (4.2-5.4); WHITE BLOOD COUNT 14.24 K/uL (4.8-10.8)
[2016-09-01] MEDS: BCP'S~ORDER AWAITING ACTION SCH ×2 (08:00)
[2016-09-01 08:07] LABS: BUN/CREATININE RATIO 3.4 (10-20); CALCIUM 8.7 mg/dl (8.5-10.1); CREATININE 0.76 mg/dl (0.60-1.20); MAGNESIUM 2.1 mg/dl (1.8-2.4); POTASSIUM 4.1 mmol/L (3.5-5.1)
[2016-09-01] MEDS: DICYCLOMINE HCL 20 MG TAB PO SCH ×2 (08:49→13:00)
[2016-09-01] MEDS: METHYLPREDNISOLONE IV 20 MG in SYRINGE 0 ML IV SCH ×2 (08:49→13:59)
[2016-09-01] MEDS ORDERED: MESA1.2T PO (09:18)
[2016-09-01] MEDS ORDERED: METR500T PO (09:18)
[2016-09-01] MEDS ORDERED: PRED10TA PO (09:18)
--- NOTE | 2016-09-01 09:18 | Discharge Instructions ---
Discharge Instructions Admission Admission Date: Aug 29, 2016 at 22:58 Admission Diagnosis: Diarrhea. Discharge Care Plan - Problem: Medical Problems: (1) Abdominal pain (2) Colitis (3) Elevated white blood cell count (4) Lower GI bleed Care Plan - Goal(s): Improve function Care Plan - Instructions: Recommended Home Diet: Full Liquid VTE Core Measure Inpt VTE Proph given/why not?: Unfractionated heparin SQ [place] Recommendations: Call your doctor if: * Temperature above 101 degrees * Pain not relieved by pain medicine ordered * There is increased drainage or redness from any incision * You have any unanswered questions or concerns. Your Doctors Instructions noted above were prepared by provider Makayla Watson.
[2016-09-01 09:29] VITALS: BP 123/77; PULSE 82; TEMP 36.5; O2SAT 100
[2016-09-01 09:51] VITALS: BP 123/77; PULSE 92; TEMP 36.5; O2SAT 100
--- NOTE | 2016-09-01 13:34 | Progress Note ---
Progress Note Date of Service Sep 01, 2016. Progress Note PT STOOLS FROM [facility] RESULTED WITH CAMPYLOBACTER SHE TOOK A 3 DAY COURSE OF CIPRO BUT DID NOT FINISH THE COURSE OF ABX. After discussing course of infection with patient and her mother, she now reports she has had bloody diarrhea for the past 9-10 years and did not provide this information until now. Treat Campylobacter with 500 mg of azithromycin x 5 days She will still need discharged with a taper of prednisone 40 mg x 7 days, 30 mg x 7 days, 20 mg x 7 days, 10 mg x 7 days, 5 mg x 7 days and Lilalda 4.8g daily. GI ok for discharge. Keep follow up with GI as planned.
--- NOTE | 2016-09-01 19:20 | Discharge Summary ---
Discharge Summary Date of Service Sep 01, 2016. Discharge Summary Admission Date: Aug 29, 2016 at 22:58 Discharge Date: Sep 01, 2016 Discharge Disposition: Home Principal Diagnosis: colitis Problems/Secondary Diagnoses: diarrhea abdominal pain Medication Reconciliation New Medications: Mesalamine (Lialda) 1.2 Gm Tab 4 TAB PO DAILY for 30 Days, #120 TAB 3 Refills Metronidazole (Flagyl) 500 Mg Tab 500 MG PO BID, #20 TAB Prednisone Tab (Prednisone) 10 Mg Tab 10 MG PO DAILY for 34 Days, #105 TAB 40 mg per day x 7 days, 30 mg per day x 7 days, 20 mg per day x 7 days, 10 mg per day x 7 days, 5 mg (half a tablet ) per day x 7 days Continued Medications: Acetaminophen (Tylenol) 500 Mg Tab 500 MG PO Q6 PRN for Pain, TAB Control Pills ( Control Pills) Tab 1 TAB PO QPM, TAB Discontinued Medications: Ibuprofen (Advil) 200 Mg Tab 200 MG PO Q6 PRN for Pain, TAB Referrals At Discharge Follow up Referrals: Physician Credentialing Specialist Referral - Within 1-2 Weeks with Lindsey Cervantes, BHAKTI Discharge Exam Review of Systems: Constitutional: No chills, No fatigue, No fever, No problem reported, No sweats, No weakness, No weight loss Eyes: No diplopia, No discharge, No eye pain, No problem reported, No redness, No worsening of vision ENT: No dental problems, No hearing loss, No nasal symptoms, No problem reported, No sore throat, No tinnitus, No trouble swallowing, No unusual epistaxis Respiratory: No cough, No dyspnea at rest, No dyspnea on exertion, No hemoptysis, No problem reported, No shortness of breath, No sputum, No wheezing Cardiovascular: No PND, No chest pain, No claudication, No edema, No orthopnea, No palpitations, No problem reported Abdomen: No GI bleeding, No constipation, No diarrhea, No nausea, No pain, No problem reported, No vomiting Musculoskeletal: No calf pain, No joint pain, No muscle pain, No problem reported, No swelling Genitourinary - Female: No dysmenorrhea, No dysuria, No hematuria, No menorrhagia, No metrorrhagia, No , No problem reported, No rash, No urinary frequency, No urinary incontinence, No urinary retention, No urinary urgency, No vaginal bleeding, No vaginal discharge, No vaginal itching, No vulvodynia Genitourinary - Male: No dysuria, No hematuria, No impotence, No lesions, No penile discharge, No problem reported, No urinary frequency, No urinary hesitancy, No urinary incontinence, No urinary retention, No urinary urgency Neurologic: No balance problems, No memory loss, No numbness/tingling, No paralysis, No problem reported, No vertigo, No weakness Psychiatric: No anhedonism, No anxiety, No depression symptoms, No insomnia , No problem reported, No substance abuse Endocrine: No excessive thirst, No excessive urination, No fatigue, No problem reported Hematologic / Lymphatic: No abnormal bleeding/bruising, No clotting problems , No night sweats, No problem reported, No swollen lymph nodes Integumentary: No bleeding, No color change, No itch, No new/changing skin lesions, No problem reported, No rash Physical Exam: General Appearance: no apparent distress Eyes: normal inspection, EOMI ENT: normal ENT inspection, hearing grossly normal Neck: supple Respiratory/Chest: chest non-tender, lungs clear, normal breath sounds, no respiratory distress, no accessory muscle use Cardiovascular: regular rate, rhythm, no edema, no gallop, no JVD, no murmur , normal peripheral pulses Abdomen / GI: normal bowel sounds, non tender, soft, no organomegaly, no pulsatile mass, normal rectal exam Extremities: normal inspection, no calf tenderness, normal capillary refill , no pedal edema Neurologic/Psychiatric: covering machine tender II-XII nml as tested, no motor/sensory deficits , alert, normal mood/affect, normal reflexes, oriented x 3 Skin: normal color, warm/dry, no rash Hospital Course This is a 21 y/o F who presents with Intractable Diarrhea and abdominal pain she was admitted to telemetry blood work showed Elevated ESR/CRP, started on IVF hydration and pain management GI were consulted S/P Colonoscopy 08/31, revealed inflamed colon mucosa/congested , erythematous and friable dose of entire visualized colon and friable mucous membranes - C. difficile and Hemoccult negative also negative stool cultures, cipro was stopped GI recommended: -- Methylprednisolone 20 mg IV TID -- Taper Prednisone 40 mg x 7 days, 30 mg x 7 days, 20 mg x 7 days, 10 mg x 7 days, 5 mg x 7 days -- D/C on Lialda 4.8 mg daily -- GI outpatient F/U and upon discharge she was sent on flagyl to cover aerobes and Azithromycin to cover Campylobacter she is feeling better today and will follow up with GI as an out patient Total Time Spent: Greater than 30 minutes This includes examination of the patient, discharge planning, medication reconciliation, and communication with other providers. Discharge Instructions Please refer to the electronic Patient Visit Report (Discharge Instructions) for additional information.
[2016-09-08 13:55] LABS: O&P SOURCE OTHER-STOOL
== END 2016-09-01 15:00 | disposition home or self-care (01) | DRG 372 ==
LOC: ENRESERVDT → ENRESERVTM → C.EDB 15:17 → C.MS2W 22:58
PROVIDERS: ADMIT Student in an Organized Health Care Education/Training Program; ATTEND Internal Medicine
PROC: 0DBE8ZX Excision of Large Intestine, Via Natural or Artificial Opening Endoscopic, Diagnostic (ICD-10-PCS; principal; 2016-08-31 10:47)
DX: A04.5 Campylobacter enteritis (principal); K62.5 Hemorrhage of anus and rectum; R79.82 Elevated C-reactive protein (CRP); Z79.3 Long term (current) use of hormonal contraceptives; Z83.79 Family history of other diseases of the digestive system